=== PATIENT | female | born 1950 | race African-American/Black ===

== ENCOUNTER → 2022-09-07 | Day surgery (SDC) | payer OTHER | END | disposition home or self-care (01) | LOC: JRADUS-SUR 12:12 | PROVIDERS: ATTEND Surgery | PROC: BH01ZZZ Plain Radiography of Left Breast (ICD-10-PCS; principal; 2022-09-07) | DX: C50.912 Malignant neoplasm of unspecified site of left female breast (principal) | CPT/HCPCS: 19281; A4648 ==

== ENCOUNTER 2022-09-10 03:52 | Day surgery (SDC) | payer OTHER ==
[2022-09-07 11:12] VITALS: BMI 34.3
[2022-09-10] MEDS ORDERED: LIDOCAINE HCL/PF 2% SDV 5ML VIAL ONE (08:10)
[2022-09-10] MEDS ORDERED: PROPOFOL 20 ML ONE (08:11)
[2022-09-10] MEDS ORDERED: MIDAZOLAM HCL 2 MG/2 ML SINGLE DOSE VIAL ONE (08:11)
[2022-09-10] MEDS ORDERED: METHYLENE BLUE 50 MG/10 ML AMPUL ONE (08:42)
[2022-09-10] MEDS ORDERED: LIDOCAINE HCL 1%, 10 MG/ML (10ML VIAL) MDV ONE (08:44)
[2022-09-10] MEDS ORDERED: ONDANSETRON 4 MG/2 ML VIAL ONE ×2 (08:57→13:16)
[2022-09-10] MEDS ORDERED: ceFAZolin SODIUM 1 GM VIAL ONE (08:57)
[2022-09-10] MEDS ORDERED: KETOROLAC TROMETHAMINE 30 MG/1 ML VIAL ONE (08:57)
[2022-09-10] MEDS ORDERED: DEXAMETHASONE SOD PHOSPHATE 4 MG/1 ML VIAL ONE (08:57)
[2022-09-10] MEDS ORDERED: ceFAZolin SODIUM 1 GM VIAL IVPB ONE (09:05)
[2022-09-10] MEDS ORDERED: LIDOCAINE HCL 1%, 10 MG/ML (50 mL VIAL) INF ONE ×2 (09:24)
[2022-09-10] MEDS ORDERED: ONDANSETRON 4 MG/2 ML VIAL IVPUSH PRN (10:43)
[2022-09-10] MEDS ORDERED: PROMETHAZINE HCL 25 MG/1 ML VIAL IVPB PRN (10:43)
[2022-09-10] MEDS ORDERED: oxyCODONE HCL 5 MG TABLET PO PRN ×2 (10:43)
[2022-09-10] MEDS ORDERED: ACETAMINOPHEN 1000 MG/100 ML BAG IVPB ONE (10:44)
[2022-09-10] MEDS ORDERED: LACTATED RINGERS SOLUTION 1,000 ML IV SCH (10:45)
[2022-09-10] MEDS ORDERED: ACETAMINOPHEN INJECTION 100 ML IVPB ONE (11:24)
[2022-09-10] MEDS ORDERED: ONDANSETRON 4 MG/2 ML VIAL IVPB ONE (13:20)
[2022-09-10 13:39] VITALS: RESP 18
[2022-09-10 15:14] VITALS: BP 118/65; PULSE 74; TEMP 97.4
== END 2022-09-10 15:05 | disposition home or self-care (01) ==
LOC: JASU-SURG 03:52
PROVIDERS: ATTEND Surgery
PROC: C71LYZZ Planar Nuclear Medicine Imaging of Upper Chest Lymphatics using Other Radionuclide (ICD-10-PCS; 2022-09-10)
PROC: 0HBU0ZZ Excision of Left Breast, Open Approach (ICD-10-PCS; principal; 2022-09-10 09:00)
PROC: 07B60ZX Excision of Left Axillary Lymphatic, Open Approach, Diagnostic (ICD-10-PCS; 2022-09-10 09:00)
DX: C50.912 Malignant neoplasm of unspecified site of left female breast (principal); Z17.0 Estrogen receptor positive status [ER+]
CPT/HCPCS: 76098-TC-FY; 78195-TC; 88307-TC; 88342-TC; 94760; A9541; Q9968